=== PATIENT | male | born 1975 | race Caucasian/White ===

== ENCOUNTER 2017-10-27 19:30 | Emergency (ER) | payer BC, OTHER ==
[2017-10-27] MEDS ORDERED: LABETALOL HCL 5 MG/ML VIAL IV ONE ×3 (19:50→20:54)
--- NOTE | 2017-10-27 19:51 | ERNOTE ---
Chest Pain/Cardiac HPI Date of Service: 10/27/17 Chief Complaint: Palpitations Time Seen by Provider: 10/27/17 19:38 Source: patient Allergies/Adverse Reactions: Allergies No Known Allergies Allergy (Verified 01/04/16 11:23) Home Medications: HOME MEDICATIONS Allopurinol [Zyloprim] 300 mg PO DAILY 06/13/13 [Last Taken Unknown] Hydrochlorothiazide [Hydrodiuril] 25 mg PO DAILY #20 tab 10/27/17 [Last Taken Unknown] Narrative: 42 year old that has been feeling fatigued for three weeks. Typically works out with weights (400 lbs squats and lifts) 3-4 times per week and is employed as a rail operator. Over the last three days he has been having intermittent periods of fatigue and palpitations. Diagnosed with hypertension at one time, then taken off of medications and has not checked his blood pressure routinely for many months. No complaints of chest pain, disphoresis, fevers, chills or shortness of breath. Date (Duration): 10/27/17 Time (Timing): 19:48 Timing: intermittent Severity/Quality: mild Activities at Onset: none Modifying Factors - Worsens: Present: nothing Review of Systems - Review of Systems Constitutional: Present: no symptoms reported EYE: Present: no symptoms reported ENT: Present: no symptoms reported Respiratory: Present: shortness of breath - mild intermittently Cardiology: Present: no symptoms reported Gastrointestinal/Abdominal: Present: no symptoms reported Genitourinary: Present: no symptoms reported Musculoskeletal: Present: no symptoms reported Skin: Present: no symptoms reported Neurological: Present: no symptoms reported Endocrine: Present: no symptoms reported Hematologic/Lymphatic: Present: no symptoms reported Psych: Present: no symptoms reported - Patient's Past Medical History Patient History - Medical: No pertinent hx Patient History - Cardiac/Respiratory: Hypertension, Hyperlipidemia, CPAP/BiPAP Home Use, Sleep Apnea Patient History - Cancer: No Hx of Cancer Patient History - Surgical Procedures: Other Physical Exam - Physical Exam Narrative: Robust and muscular General Appearance: Present: no apparent distress Head Exam: Present: normal inspection Eye Exam: Normal inspection: bilateral Ears, Nose, Throat: Present: normal ENT inspection Neck: Present: normal inspection, supple, full range of motion Respiratory: Present: no respiratory distress Cardiovascular/Chest: Present: regular rate, rhythm Gastrointestinal/Abdominal: Present: nondistended Back Exam: Present: normal inspection Extremity Exam: Present: normal inspection Neurological Exam: Present: alert, oriented, normal mood/affect Skin Exam: Present: normal color ED Progress - Results and Orders Patient's Lab Results:: I have reviewed the patient's lab results. - Vital Signs Patient's Vital Signs:: I have reviewed the patient's vital signs. - EKG EKG: NSR EKG read: Interp. by me EKG Comments: rate 76, normal axis - Progress/Reassessment Progress:: Improved Progress Note-Subjective: 10/27/17 22:16 He feels much better after the labetalol menstruation. Departure Clinical Impression: Hypertension, Palpitations - Departure Disposition: Home self-care Condition: Good Instructions: Hypertension, [id number] Print Language: Chadian Additional Instructions: If you feel sick return to the ED. Referrals: Puneet Causey DO [Primary Care Provider] - Prescriptions: Hydrochlorothiazide [Hydrodiuril] 25 mg PO DAILY #20 tab
[2017-10-27 19:54] LABS: Hematocrit 43.4 % (42.0-52.0); Hemoglobin 14.6 gm/dL (13.5-18.0); Mean Cell Volume 83.9 fl (78-100); Mean Corpuscular Hemoglobin 28.2 pg (27-31); Mean Corpuscular Hgb Conc 33.6 g/dl (32-36); Mean Platelet Volume 8.6 fl (6.0-9.5); Neutrophil # 4.4 K/mm3 (1.3-6.0); Neutrophil % 54.6 % (42-75.0); Platelet Count 284 K/mm3 (150-450); Red Blood Count 5.17 M/mm3 (4.7-6.0); Red Cell Distribution Width 12.5 % (11.5-14.0); White Blood Count 8.1 K/mm3 (4.0-10.5)
[2017-10-27 20:24] LABS: Anion Gap 10.5 mmol/L (6.8-13.8); BUN/Creatinine Ratio 11.3 (9.0-21.6); Blood Urea Nitrogen 16 mg/dL (6-23); CK Total * 190 U/L (0-259); CKMB 1.1 ng/mL (0.0-9.0); Calcium * 8.6 mg/dL (7.9-10.9); Carbon Dioxide 32.4 mmol/L (24-32.6); Chloride 102 mmol/L (97-106); Estimated Creat Clear 72.2; Glucose * 119 mg/dL (70-110); Potassium 3.9 mmol/L (3.4-4.6); Sodium 141 mmol/L (132-142); Troponin I Less than 0.017 ng/ml (0.00-0.10)
[2017-10-27 22:13] VITALS: BP 150/82
== END 2017-10-27 22:21 | disposition home or self-care (01) ==
LOC: ER 19:30
DX: I10 Essential (primary) hypertension (principal); R00.2 Palpitations